=== PATIENT | male | born 1975 | race Caucasian/White ===

== ENCOUNTER 2022-06-04 15:53 | Emergency (ER) | payer OTHER ==
[2022-06-04 16:07] VITALS: BP 164/97; PULSE 72; RESP 17; TEMP 98; BMI 26.6
[2022-06-04] MEDS ORDERED: KETOROLAC TROMETHAMINE 60 MG/2 ML VIAL IM ONE (16:28)
[2022-06-04] MEDS ORDERED: LIDOCAINE 5% TOPICAL PATCH TP ONE (16:28)
[2022-06-04] MEDS ORDERED: METHOCARBAMOL 500 MG TABLET PO ONE (16:28)
[2022-06-04] MEDS ORDERED: LIDOCAINE 5% TOPICAL PATCH ONE (16:44)
[2022-06-04] MEDS ORDERED: METHOCARBAMOL 500 MG TABLET ONE (16:45)
[2022-06-04] MEDS ORDERED: KETOROLAC TROMETHAMINE 60 MG/2 ML VIAL ONE (16:45)
[2022-06-04] MEDS ORDERED: LIDOCAINE PATCH REMOVAL MC SCH (22:00)
== END 2022-06-04 19:27 | disposition home or self-care (01) ==
LOC: JERFT 15:53
PROC: 3E0233Z Introduction of Anti-inflammatory into Muscle, Percutaneous Approach (ICD-10-PCS; principal; 2022-06-04)
DX: M54.50 Low back pain, unspecified (principal); M47.816 Spondylosis without myelopathy or radiculopathy, lumbar region
CPT/HCPCS: 72131-TC; 99284-25